=== PATIENT | male | born 1995 | race African-American/Black ===

== ENCOUNTER 2022-01-01 20:07 | Emergency (ER) | payer BC, SELFPAY ==
--- NOTE | ~2022-01-01 | CT_ITS ---
EXAMINATION: CT abdomen pelvis w con DATE: 01/01/2022 23:07 INDICATION: Post gastric bypass. Bleeding. TECHNIQUE: Computed tomography (CT) of the abdomen and pelvis was performed with 100 cc Omnipaque 350 intravenous contrast. The dose-length product was 1721.66 mGy-cm. Automated exposure control and ite rative reconstruction technique were employed. COMPARISON: None. FINDINGS: Lung bases are unremarkable. Heart size normal. No significant pleural or pericardial effus ion. There are surgical changes consistent with gastric bypass surgery. There is minimal perigastric stranding and slight wall thickening, likely postsurgical. No walled off fluid collection to suggest postoperative hematoma or abscess. Fatty infiltration of the liver. The spleen, pancreas, adrenal glands and kidneys are unremarkable. G allbladder is present. No free air or free fluid. Small fat-containing umbilical hernia. Normal appen elana. No significant vascular abnormality. No abdominal lymphadenopathy. IMPRESSION: 1. Postoperative changes consistent with recent gastric bypass surgery. 2: No acute abdominal abnormality. Reviewed, dictated and finalized at location [facility].
[2022-01-01 20:11] VITALS: BP 155/89; PULSE 122; RESP 20; TEMP 36.6; O2SAT 100
[2022-01-01 20:31] LABS: Basophils Percent Auto 0.3 % (0.2-1.2); Eosinophils Absolute Auto 0.2 K/mm3 (0-0.3); Hematocrit 43.3 % (42.0-52.0); Hemoglobin 14.2 g/dL (14.0-18.0); Immature Granulocyte Absolute 0.02 K/mm3 (0.00-0.031); Immature Granulocyte Percent A 0.2 % (0-0.5); Lymphocytes Absolute Auto 3.63 K/mm3 (0.9-3.2); Mean Corpuscular HGB Conc 32.8 g/dl (32-36); Mean Corpuscular Volume 88.4 fl (80-100); Mean Platelet Volume 9.5 fl (7.4-10.4); Monocytes Absolute Auto 0.8 K/mm3 (0.1-0.6); Monocytes Percent Auto 8.1 % (2.6-8.5); Neutrophils Absolute Auto 4.9 K/mm3 (1.3-6.7); Neutrophils Percent Auto 51.4 % (45.5-73.1); Platelet Count Result 272 k/mm3 (150-375); Red Cell Distribution Width 14.2 % (11.5-14.5); White Blood Count 9.6 K/mm3 (4.5-10.0)
[2022-01-01 20:40] LABS: Alanine Aminotransferase 58 U/L (6-50); Albumin Level 4.7 g/dL (3.5-5.1); Alkaline Phosphatase 55 U/L (38-126); Anion Gap 14 mmol/L (8-16); Aspartate Amino Transferase 46 U/L (17-59); Bilirubin,Total 0.8 mg/dL (0.2-1.3); Blood Urea Nitrogen 15 mg/dL (9-20); Calcium 9.2 mg/dL (8.4-10.2); Carbon Dioxide 26 mmol/L (22-30); Chloride 100 mmol/L (98-107); Estimated CRCL calculation 162 ml/min; Estimated Glomerular Filt Rate > 60; Glucose 106 mg/dL (65-110); INR 1.1; Potassium 3.7 mmol/L (3.4-5.0); Prothrombin Time 14.2 Seconds (11.1-14.7); Sodium 140 mmol/L (137-145)
[2022-01-01 20:41] LABS: Partial Thromboplastin Time 32.8 SECONDS (22.3-36.8)
[2022-01-01 21:17] VITALS: BP 128/82; PULSE 82
[2022-01-01 21:18] VITALS: BP 138/98; PULSE 105
[2022-01-01 21:19] VITALS: BP 124/101; PULSE 125
[2022-01-01 21:23] VITALS: PULSE 97; RESP 22; O2SAT 99
--- NOTE | 2022-01-01 21:29 | ED.GENADULT ---
HPI - General Adult General Chief complaint: GI Bleed Stated complaint: gi bleed Time Seen by Provider: 01/01/22 21:16 History of Present Illness HPI narrative: 26-year-old male presented to the emergency department for evaluation after passing some bright red blood. Patient states he had gastric bypass on Sunday at [facility]. Patient states yesterday he was drinking more water than recommended. Patient states today that he noticed some bright red blood in his stool. Patient denies any abdominal pain. Patient reported a prior history of hemorrhoids. Patient is currently on Lovenox twice daily. Related Data Allergies Allergy/AdvReac Type Severity Reaction Status Date / Time No Known Allergies Allergy Verified 01/01/22 21:23 Review of Systems Review of Systems: CONSTITUTIONAL: Denies fever, chills, or sweats. EYES: Denies visual changes, redness, or discharge. ENT: Denies rhinorrhea, congestion, sore throat, or otalgia. CARDIOVASCULAR: Denies chest pain, palpitations, or edema. RESPIRATORY: Denies cough or dyspnea. GASTROINTESTINAL: See HPI GENITOURINARY: Denies dysuria or hematuria. SKIN: Denies rash or itching. MUSCULOSKELETAL: Denies back pain, joint pain, or myalgia. NEUROLOGIC: Denies headache, numbness, or weakness. Exam Narrative: APPEARANCE: Well appearing, no pain, no distress, well-nourished. HEAD: normocephalic, atraumatic. EYES: PERRLA/EOMI, conjunctivae clear. NOSE: Normal no drainage NECK: Supple. No adenopathy, no masses. RESPIRATORY: Airway patent, respirations nonlabored. Clear to auscultation bilaterally, no rales, rhonchi, wheezing. CARDIOVASCULAR: Regular rate and rhythm without murmurs rubs or gallops. ABDOMINAL: Soft, nontender, nondistended, normal bowel sounds. Surgical incisions are well-appearing. MUSCULOSKELETAL: Moves all extremities. Strength/ROM intact, No edema, No calf tenderness. NEURO: Alert. Cranial nerves II through XII intact. Grossly intact SKIN: Warm, dry. Normal Color Course Course Emergency Course: Case was discussed with the patient's surgeons at [facility]. They are comfortable with the plan for discharge and follow-up. Patient was also comfortable with the plan for discharge and follow-up. Patient was in no distress at time of discharge. Reevaluation(s) Reevaluation #1: Case was discussed with Dr. Boyd at [facility] Vital Signs Vital signs: Vital Signs Temperature 97.8 F 01/01/22 20:11 Pulse Rate 122 H 01/01/22 20:11 Respiratory Rate 20 01/01/22 20:11 Blood Pressure 155/89 H 01/01/22 20:11 Pulse Oximetry 100 01/01/22 20:11 Oxygen Delivery Room Air 01/01/22 20:11 Temperature 97.8 F 01/01/22 20:11 Pulse Rate 81 01/02/22 02:06 Respiratory Rate 20 01/02/22 02:06 Blood Pressure 128/71 01/02/22 02:06 Pulse Oximetry 99 01/02/22 01:33 Oxygen Delivery Room Air 01/01/22 20:11 Medical Decision Making Vital Signs Vital Signs: Vital Signs Temperature 97.8 F 01/01/22 20:11 Pulse Rate 122 H 01/01/22 20:11 Respiratory Rate 20 01/01/22 20:11 Blood Pressure 155/89 H 01/01/22 20:11 Pulse Oximetry 100 01/01/22 20:11 Oxygen Delivery Room Air 01/01/22 20:11 Temperature 97.8 F 01/01/22 20:11 Pulse Rate 81 01/02/22 02:06 Respiratory Rate 20 01/02/22 02:06 Blood Pressure 128/71 01/02/22 02:06 Pulse Oximetry 99 01/02/22 01:33 Oxygen Delivery Room Air 01/01/22 20:11 Lab Data Lab results reviewed: Yes I reviewed the patient's lab results. Result diagrams: 01/01/22 20:23 01/01/22 20:23 Labs: Lab Results 01/01/22 01/01/22 01/01/22 Range/Units 20:23 20:23 20:23 WBC 9.6 (4.5-10.0) K/mm3 RBC 4.90 (4.6-6.20) M/mm3 Hgb 14.2 (14.0-18.0) g/dL Hct 43.3 (42.0-52.0) % MCV 88.4 (80-100) fl MCH 29.0 (26-34) pg MCHC 32.8 (32-36) g/dl RDW 14.2 (11.5-14.5) % Plt Count 272 (150-375) k/mm3 MPV 9.5 (7.4-10.4) fl Im
[2022-01-01] MEDS: SODIUM CHLORIDE 0.9% IV 1,000 ML 999 ML IV CONT (22:20)
[2022-01-01] MEDS: PANTOPRAZOLE SODIUM IV 40 MG VIAL IV PUSH (22:20)
[2022-01-01 22:54] VITALS: BP 120/67; PULSE 82; RESP 18; O2SAT 100
--- NOTE | 2022-01-01 22:55 | PC.NURSE ---
Pt to CT via stretcher at this time.
--- NOTE | 2022-01-01 23:16 | PC.NURSE ---
Pt requesting ice chips. Pt educated on need for NPO status at this time.
[2022-01-02 01:33] VITALS: BP 109/59; PULSE 77; RESP 16; O2SAT 99
[2022-01-02 02:06] VITALS: BP 128/71; PULSE 81; RESP 20
== END 2022-01-02 02:06 | disposition home or self-care (01) ==
PROVIDERS: Emergency Provider Emergency Medicine
DX: K91.840 Postprocedural hemorrhage of a digestive system organ or structure following a digestive system procedure (principal); Z98.84 Bariatric surgery status
CPT/HCPCS: 36415; 74177; 80053; 85025; 85610; 85730; 86850; 86900; 86901; 96361; 96374; 99284; C9113; J7030; Q9967

== ENCOUNTER 2022-08-19 15:12 | Emergency (ER) | payer OTHER, BC, SELFPAY ==
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
[2022-08-19 15:43] VITALS: BP 131/78; PULSE 74; RESP 16; TEMP 36.8; O2SAT 100
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
[2022-08-19 18:37] VITALS: BP 153/95; PULSE 72; RESP 18; O2SAT 100
== END 2022-08-19 19:00 | disposition short-term general hospital (02) ==
PROVIDERS: Emergency Provider Preventive Medicine Aerospace Medicine
DX: S00.83XA Contusion of other part of head, initial encounter (principal); R51.9 Headache, unspecified; M54.6 Pain in thoracic spine; V89.2XXA Person injured in unspecified motor-vehicle accident, traffic, initial encounter; Z98.84 Bariatric surgery status
CPT/HCPCS: 70450; 72070; 99284; 99285

== ENCOUNTER 2024-12-15 17:27 | Emergency (ER) | payer OTHER, SELFPAY ==
--- NOTE | ~2024-12-15 | US_ITS ---
EXAMINATION: US scrotum doppler DATE: 12/15/2024 18:47 INDICATION: left testicualr pain . TECHNIQUE: Grayscale and Doppler ultrasound images of the testes were obtained. COMPARISON: None. FINDINGS: The right testis measures 4.2 x 2.6 x 1.9 cm. The left testis measures 3.1 x 1.8 x 3.0 cm. No testicular mass. There is normal vascular flow to both testes. The right epididymis contains a sim ple 1.7 cm cyst and is otherwise normal with normal vascular flow. The left epididymis contains a sim ple 1.1 cm cyst and is otherwise normal with normal vascular flow. There is no varicocele or hydrocel e. IMPRESSION: Unremarkable ultrasound findings. Reviewed, dictated and finalized at location K.
--- OUTSIDE RECORDS SUMMARY | 2024-12-15 17:29 | XMS_ITS | Continuity of Care Document ---
Author Organization [facility] Address [address] [place] [address] Phone Care Team Providers Care Tax Accounting Manager Name Role Phone Gustavo BECKETT, ANJELICAT, Giovanni Unavailable Unavailable Procedures Procedure Date Therapeutic Activities Neuromuscular Re-Ed Therapeutic Exercise Therapeutic Activities Neuromuscular Re-Ed Therapeutic Exercise PT Evaluation High Complexity Therapeutic Activities Therapeutic Exercise Neuromuscular Re-Ed Advance Directives Directive Yes / No Effective Date File Name No Information Encounters Encounter Description Practice Location Reason(s) For Visit Diagnoses Date Provider Providers Copied on Encounter [facility], [id number], tel:[phone] [place] No Information 3 Gustavo Davila. . [facility] [address], [place], [place], [id number], tel:[phone] [place] No Information 3 Gustavo Davila. . Referring Provider: [facility]. [facility] [address], [place], [place], [id number], tel:[phone] [place] No Information 3 Gustavo Davila. . Referring Provider: [facility]. [facility] [address], [place], [place], [id number], tel:[phone] [place] No Information 3 Gustavo Davila. . Referring Provider: [facility]. Family History Family Member Type Diagnosis Age At Onset No Information Payers Payer name Insurance type Covered alliance party ID Kimmy navarro(francois Lindsaye Coco [employer] 00 Social History Type Description Quantity Date Captured Comments Sex Male Smoking Status No Information Chief Complaint And Reason For Visit No Information Reason For Referral Reason For Referral No Information History Of Present Illness Encounter Date Complaint History Of Prese nt Illness No Information Functional Status Date Functional Assessmen t No Information Instructions Date Instruction Additional Infor mation Giving encouragement to exercise Related to Overweight Giving encouragement to exercise Related to Overweight Assessments Type Assessment Date No Information Patient Care Teams Name Effective Dates (start - stop) Status Members No Information
--- OUTSIDE RECORDS SUMMARY | 2024-12-15 17:29 | XMS_ITS | Clinical Summary ---
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 Gender Identity Not on file Sexual Orientation Not on file Plan of Treatment Health Maintenance Due Date Last Done Comments Hepatitis C Virus (HCV) Screening 1995 Hepatitis B Immunization (1 of 3 - 19+ 3-dose series) 07/30/2014 Influenza Immunization (#1) 2024 SARS-COV-2 Immunization ( season) 2024 Respiratory Syncytial Virus (RSV) Immunization (Adult) (1 - 1-dose 75+ series) 07/30/2070 DTaP/Tdap/Td Immunization Discontinued 12/24/2014 Human Papillomavirus (HPV) Immunization Discontinued 12/24/2014 TdaP Immunization Completed 12/24/2014 Meningococcal Immunization (ACWY) Aged Out No longer eligible based on patient's age to complete this topic Pneumococcal Immunization Combined Aged Out No longer eligible based on patient's age to complete this topic Rotavirus Immunization Aged Out No lo nger eligible based on patient's age to complete this topic
--- OUTSIDE RECORDS SUMMARY | 2024-12-15 17:29 | XMS_ITS | Data Portability ---
Author Organization [facility] Animated Speech, Main Office Address [address] [place] [address] Assessment No assessment recorded. Plan of Treatment Reminders Order Date Submit Date Provider Last Modified By Organization Details Last Modified Time Details Appointments None record ed. Lab None record ed. Referral None record ed. Procedures None record ed. Surgeries None record ed. Imaging None record ed. Medication Orders None record ed. Patient TargetsNo targets recorded. Patient InstructionsNo instructions recorded. Reason for Referral None Reported. Results Created Date Observation Date Name Description Value Unit Range Abnormal Flag Note LastModifiedBy Organization Detail LastModifiedTime 01/05/20 22 01/08/2022 FSH AND LH FSH 6.5 mIU/m L 1.6-8. 0 normal Not Available [facility] [address] [address] [place], [address], 01/08/2022 16:42:50 01/05/20 22 01/08/2022 FSH AND LH LH 3.7 mIU/m L 1.5-9. 3 normal Not Available [facility] [address], [address], 01/08/2022 16:42:50 01/05/20 22 01/08/2022 PSA, TOTAL PSA, total 0.93 NG/mL < or = 4.00 normal The total PSA value from this assay syste m is stand ardiz ed again st the WHO stand bee. The test resul t will be appro ximat roberto 20% lower when walter red to the equim olar- stand ardiz ed total PSA (Ramirez man Coult er). Walter rison of seria l PSA resul ts shoul d be inter prete d with this fact in mind. This test was perfo rmed using the Sieme ns chemi lumin escen t metho d. Value s obtai isac from diffe rent assay metho ds canno t be used inter boyd eably . PSA level s, regar dless of value , shoul d not be inter prete d as absol miah evide nce of the prese nce or absen ce of disea se. Not Available [facility] [address], [address], 01/08/2022 16:42:50 01/05/20 22 01/08/2022 CBC (INCL UDES DIFF/ PLT) white blood cell count 7.4 thous and/u L 3.8-10 .8 normal Not Available [address], [address], 01/08/2022 16:42:50 01/05/20 22 01/08/2022 CBC (INCL UDES DIFF/ PLT) red blood cell count 4.56 oralia on/uL 4.20-5 .80 normal Not Available [address], [address], 01/08/2022 16:42:50 01/05/20 22 01/08/2022 CBC (INCL UDES DIFF/ PLT) hemoglobin 13.0 g/dL 13.2-1 7.1 low Not Available [facility] [address], [address], 01/08/2022 16:42:50 01/05/20 22 01/08/2022 CBC (INCL UDES DIFF/ PLT) hematocrit 39.4 % 38.5-5 0.0 normal Not Available [facility] [address], [address], 01/08/2022 16:42:50 01/05/20 22 01/08/2022 CBC (INCL UDES DIFF/ PLT) MCV 86.4 fL 80.0-1 00.0 normal Not Available [facility] [address] [address], [place], [address], 01/08/2022 16:42:50 01/05/20 22 01/08/2022 CBC (INCL UDES DIFF/ PLT) MCH 28.5 pg 27.0-3 3.0 normal Not Available [address], [address], 01/08/2022 16:42:50 01/05/20 22 01/08/2022 CBC (INCL UDES DIFF/ PLT) MCHC 33.0 g/dL 32.0-3 6.0 normal Not Available [address], [address], 01/08/2022 16:42:50 01/05/20 22 01/08/2022 CBC (INCL UDES DIFF/ PLT) RDW 13.6 % 11.0-1 5.0 normal Not Available [address], [address], 01/08/2022 16:42:50 01/05/20 22 01/08/2022 CBC (INCL UDES DIFF/ PLT) platelet count 292 thous and/u L 140-40 0 normal Not Available [address], [address], 01/08/2022 16:42:50 01/05/20 22 01/08/2022 CBC (INCL UDES DIFF/ PLT) MPV 10.2 fL 7.5-12 .5 normal Not Available [address], [address], 01/08/2022 16:42:50 01/05/20 22 01/08/2022 CBC (INCL UDES DIFF/ PLT) absolute neutrophils 3596 cells /uL 1500-7 800 normal Not Available [address], [address], 01/08/2022 16:42:50 01/05/20 22 01/08/2022 CBC (INCL UDES DIFF/ PLT) absolute lymphocytes 2938 cells /uL 850-39 00 normal Not Available [address], [address], 01/08/2022 16:42:50 01/05/20 22 01/08/2022 CBC (INCL UDES DIFF/ PLT) absolute monocytes 636 cells /uL 200-95 0 normal Not Available [address], [address], 01/08/2022 16:42:50 01/05/20 22 01/08/2022 CBC (INCL UDES DIFF/ PLT) absolute eosinophils 200 cells /uL 15-500 normal Not Available [address], [address], 01/08/2022 16:42:50 01/05/20 22 01/08/2022 CBC (INCL UDES DIFF/ PLT) absolute basophils 30 cells /uL 0-200 normal Not Available [facility] [address], [address], 01/08/2022 16:42:50 01/05/20 22 01/08/2022 CBC (INCL UDES DIFF/ PLT) neutrophils 48.6 % normal Not Available [address], [address], 01/08/2022 16:42:50 01/05/20 22 01/08/2022 CBC (INCL UDES DIFF/ PLT) lymphocytes 39.7 % normal Not Available [facility] [address], [address], 01/08/2022 16:42:50 01/05/20 22 01/08/2022 CBC (INCL UDES DIFF/ PLT) monocytes 8.6 % normal Not Available [facility] [address], [address], 01/08/2022 16:42:50 01/05/20 22 01/08/2022 CBC (INCL UDES DIFF/ PLT) eosinophils 2.7 % normal Not Available [address], [address], 01/08/2022 16:42:50 01/05/20 22 01/08/2022 CBC (INCL UDES DIFF/ PLT) basophils 0.4 % normal Not Available [address], [address], 01/08/2022 16:42:50 01/05/20 22 01/08/2022 COMPR EHENS VNETURA METAB OLIC PANEL glucose 78 mg/dL 65-99 normal Fasti ng refer ence inter khari Not Available [address], [address], 01/08/2022 16:42:49 01/05/20 22 01/08/2022 COMPR EHENS VENTURA METAB OLIC PANEL urea nitrogen (BUN) 10 mg/dL 7-25 normal Not Available [address], [address], 01/08/2022 16:42:49 01/05/20 22 01/08/2022 COMPR EHENS VENTURA METAB OLIC PANEL creatinine 0.89 mg/dL 0.60-1 .24 normal Not Available [address], [address], 01/08/2022 16:42:49 01/05/20 22 01/08/2022 COMPR EHENS VENTURA METAB OLIC PANEL eGFR 121 mL/mi n/1.7 3m2 > or = 60 normal The eGFR is based on the CKD-E PI 2020 equat ion. To calcu late the new eGFR from a previ ous Creat inine or Cysta tin C resul t, go to https ://aj hamilton.rao paniagua.o david/casey mendez s/ kdoqi /gfr% 5Fcal culat or Not Available [address], [address], 01/08/2022 16:42:49 01/05/20 22 01/08/2022 COMPR EHENS VENTURA METAB OLIC PANEL BUN/creatini ne ratio not applic able (calc ) 6-22 Not Available [address], [address], 01/08/2022 16:42:49 01/05/20 22 01/08/2022 COMPR EHENS VENTURA METAB OLIC PANEL sodium 138 mmol/ L 135-14 6 normal Not Available [address], [address], 01/08/2022 16:42:49 01/05/20 22 01/08/2022 COMPR EHENS VENTURA METAB OLIC PANEL potassium 4.0 mmol/ L 3.5-5. 3 normal Not Available [address], [address], 01/08/2022 16:42:49 01/05/20 22 01/08/2022 COMPR EHENS VENTURA METAB OLIC PANEL chloride 99 mmol/ L 98-110 normal Not Available [address], [address], 01/08/2022 16:42:49 01/05/20 22 01/08/2022 COMPR EHENS VENTURA METAB OLIC PANEL carbon dioxide 28 mmol/ L 20-32 normal Not Available [address], [address], 01/08/2022 16:42:49 01/05/20 22 01/08/2022 COMPR EHENS VENTURA METAB OLIC PANEL calcium 9.5 mg/dL 8.6-10 .3 normal Not Available [address], [address], 01/08/2022 16:42:49 01/05/20 22 01/08/2022 COMPR EHENS VENTURA METAB OLIC PANEL protein, total 7.0 g/dL 6.1-8. 1 normal Not Available [address], [address], 01/08/2022 16:42:49 01/05/20 22 01/08/2022 COMPR EHENS VENTURA METAB OLIC PANEL albumin 4.4 g/dL 3.6-5. 1 normal Not Available [address], [address], 01/08/2022 16:42:49 01/05/20 22 01/08/2022 COMPR EHENS VENTURA METAB OLIC PANEL globulin 2.6 g/dL_ (calc ) 1.9-3. 7 normal Not Available [address], [address], 01/08/2022 16:42:49 01/05/20 22 01/08/2022 COMPR EHENS VENTURA METAB OLIC PANEL albumin/glob ulin ratio 1.7 (calc ) 1.0-2. 5 normal Not Available [address], [address], 01/08/2022 16:42:49 01/05/20 22 01/08/2022 COMPR EHENS VENTURA METAB OLIC PANEL bilirubin, total 0.6 mg/dL 0.2-1. 2 normal Not Available [address], [address], 01/08/2022 16:42:49 01/05/20 22 01/08/2022 COMPR EHENS VENTURA METAB OLIC PANEL alkaline phosphatase 44 U/L 36-130 normal Not Available [address], [address], 01/08/2022 16:42:49 01/05/20 22 01/08/2022 COMPR EHENS VENTURA METAB OLIC PANEL AST 36 U/L 10-40 normal Not Available [address], [address], 01/08/2022 16:42:49 01/05/20 22 01/08/2022 COMPR EHENS VENTURA METAB OLIC PANEL ALT 56 U/L 9-46 high Not Available [address], [address], 01/08/2022 16:42:49 01/05/20 22 01/08/2022 TESTO STERO NE, FREE, BIOAV AILAB LE AND TOTAL , MS albumin 4.5 g/dL 3.6-5. 1 Not Available [address], [address], 01/08/2022 16:42:49 01/05/20 22 01/08/2022 TESTO STERO NE, FREE, BIOAV AILAB LE AND TOTAL , MS sex hormone binding globulin 16.9 nmol/ L 10-50 Not Available [address], [address], 01/08/2022 16:42:49 01/05/20 22 01/08/2022 TESTO STERO NE, FREE, BIOAV AILAB LE AND TOTAL , MS testosterone , free 27.4 pg/mL 46.0-2 24.0 low Not Available [address], [address], 01/08/2022 16:42:49 01/05/20 22 01/08/2022 TESTO STERO NE, FREE, BIOAV AILAB LE AND TOTAL , MS testosterone ,bioavailabl e 56.3 NG/dL 110.0- 575.0 low Not Available [address], [address], 01/08/2022 16:42:49 01/05/20 22 01/08/2022 TESTO STERO NE, FREE, BIOAV AILAB LE AND TOTAL , MS testosterone , total, MS 141 NG/dL 250-11 00 low Men with clini lauri signi fican t hypog onada l sympt oms and testo stero ne value s repea tedly in the range of the 200-3 00 ng/dL or less, may benef it from testo stero ne treat ment after adequ ate risk and benef its couns eling . For addit ional yee levin refer to https ://ed RushFiles on.qu Reddit. com/f aq/FA Q165 (This link is being provi ded for infor matio nal/e ducat ional purpo ses only. ) (Note ) This test was devel oped and its sara tical perfo rmanc e christal cteri stics have been deter mined by [facility]. It has not been clear ed or appro mira by the FDA. This assay has been valid ated pursu ant to the CLIA regul ation s and is used for clini mesfin purpo ses. MDF med fusio n [address] [facility] [address] [facility] [address] [phone] Shaun luong MD Not Available [address], [address], 01/08/2022 16:42:49 02/25/20 22 02/28/2022 TESTO STERO NE, FREE (DIAL YSIS) AND TOTAL ,MS testosterone , total, MS 698 NG/dL 250-11 00 For addit ional yee levin refer to https ://ed RushFiles on.qu Reddit. com/f aq/FA Q165 (This link is being provi ded for infor matio nal/e ducat ional purpo ses only. ) (Note ) This test was devel oped and its sara tical perfo rmanc e christal cteri stics have been deter mined by [facility]. It has not been clear ed or appro mira by the FDA. This assay has been valid ated pursu ant to the CLIA regul ation s and is used for clini mesfin purpo ses. Not Available [facility], [address], 02/28/2022 15:01:41 02/25/20 22 02/28/2022 TESTO STERO NE, FREE (DIAL YSIS) AND TOTAL ,MS testosterone , free 146.6 pg/mL 35.0-1 55.0 (Note ) This test was devel oped and its sara tical perfo rmanc e christal cteri stics have been deter mined by [facility]. It has not been clear ed or appro mira by the FDA. This assay has been valid ated pursu ant to the CLIA regul ation s and is used for clini mesfin purpo ses. MDF med fusio n [address] [facility] [address] [facility] [address] [phone] Shaun luong MD Not Available [address], [address], 02/28/2022 15:01:41 02/25/20 22 02/28/2022 CBC (INCL UDES DIFF/ PLT) white blood cell count 5.0 thous and/u L 3.8-10 .8 normal Not Available [address], [address], 02/28/2022 15:01:40 02/25/20 22 02/28/2022 CBC (INCL UDES DIFF/ PLT) red blood cell count 4.71 oralia on/uL 4.20-5 .80 normal Not Available [address], [address], 02/28/2022 15:01:40 02/25/20 22 02/28/2022 CBC (INCL UDES DIFF/ PLT) hemoglobin 13.8 g/dL 13.2-1 7.1 normal Not Available [address], [address], 02/28/2022 15:01:40 02/25/20 22 02/28/2022 CBC (INCL UDES DIFF/ PLT) hematocrit 41.2 % 38.5-5 0.0 normal Not Available [address], [address], 02/28/2022 15:01:40 02/25/20 22 02/28/2022 CBC (INCL UDES DIFF/ PLT) MCV 87.5 fL 80.0-1 00.0 normal Not Available [address], [address], 02/28/2022 15:01:40 02/25/20 22 02/28/2022 CBC (INCL UDES DIFF/ PLT) MCH 29.3 pg 27.0-3 3.0 normal Not Available [address], [address], 02/28/2022 15:01:40 02/25/20 22 02/28/2022 CBC (INCL UDES DIFF/ PLT) MCHC 33.5 g/dL 32.0-3 6.0 normal Not Available [address], [address], 02/28/2022 15:01:40 02/25/20 22 02/28/2022 CBC (INCL UDES DIFF/ PLT) RDW 14.6 % 11.0-1 5.0 normal Not Available [address], [address], 02/28/2022 15:01:40 02/25/20 22 02/28/2022 CBC (INCL UDES DIFF/ PLT) platelet count 231 thous and/u L 140-40 0 normal Not Available [address], [address], 02/28/2022 15:01:40 02/25/20 22 02/28/2022 CBC (INCL UDES DIFF/ PLT) MPV 10.5 fL 7.5-12 .5 normal Not Available [address], [address], 02/28/2022 15:01:40 02/25/20 22 02/28/2022 CBC (INCL UDES DIFF/ PLT) absolute neutrophils 2415 cells /uL 1500-7 800 normal Not Available [address], [address], 02/28/2022 15:01:40 02/25/20 22 02/28/2022 CBC (INCL UDES DIFF/ PLT) absolute lymphocytes 2050 cells /uL 850-39 00 normal Not Available [address], [address], 02/28/2022 15:01:40 02/25/20 22 02/28/2022 CBC (INCL UDES DIFF/ PLT) absolute monocytes 385 cells /uL 200-95 0 normal Not Available [address], [address], 02/28/2022 15:01:40 02/25/20 22 02/28/2022 CBC (INCL UDES DIFF/ PLT) absolute eosinophils 120 cells /uL 15-500 normal Not Available [address], [address], 02/28/2022 15:01:40 02/25/20 22 02/28/2022 CBC (INCL UDES DIFF/ PLT) absolute basophils 30 cells /uL 0-200 normal Not Available [address], [address], 02/28/2022 15:01:40 02/25/20 22 02/28/2022 CBC (INCL UDES DIFF/ PLT) neutrophils 48.3 % normal Not Available [address], [address], 02/28/2022 15:01:40 02/25/20 22 02/28/2022 CBC (INCL UDES DIFF/ PLT) lymphocytes 41.0 % normal Not Available [facility] [address], [address], 02/28/2022 15:01:40 02/25/20 22 02/28/2022 CBC (INCL UDES DIFF/ PLT) monocytes 7.7 % normal Not Available [address], [address], 02/28/2022 15:01:40 02/25/20 22 02/28/2022 CBC (INCL UDES DIFF/ PLT) eosinophils 2.4 % normal Not Available [facility] [address], [address], 02/28/2022 15:01:40 02/25/20 22 02/28/2022 CBC (INCL UDES DIFF/ PLT) basophils 0.6 % normal Not Available [address], [address], 02/28/2022 15:01:40 02/25/20 22 02/28/2022 COMPR EHENS VENTURA METAB OLIC PANEL glucose 90 mg/dL 65-99 normal Fasti ng refer ence inter khari Not Available [address], [address], 02/28/2022 15:01:39 02/25/20 22 02/28/2022 COMPR EHENS VENTURA METAB OLIC PANEL urea nitrogen (BUN) 7 mg/dL 7-25 normal Not Available [address], [address], 02/28/2022 15:01:39 02/25/20 22 02/28/2022 COMPR EHENS VENTURA METAB OLIC PANEL creatinine 0.88 mg/dL 0.60-1 .24 normal Not Available [address], [address], 02/28/2022 15:01:39 02/25/20 22 02/28/2022 COMPR EHENS VENTURA METAB OLIC PANEL eGFR 122 mL/mi n/1.7 3m2 > or = 60 normal The eGFR is based on the CKD-E PI 2020 equat ion. To calcu late the new eGFR from a previ ous Creat inine or Cysta tin C resul t, go to https ://aj hamilton.rao paniagua.o david/pr osoriodagmar ional s/ kdoqi /gfr% 5Fcal culat or Not Available [address] [address] [place], [address], 02/28/2022 15:01:39 02/25/20 22 02/28/2022 COMPR EHENS VENTURA METAB OLIC PANEL BUN/creatini ne ratio not applic able (calc ) 6-22 Not Available [address], [address], 02/28/2022 15:01:39 02/25/20 22 02/28/2022 COMPR EHENS VENTURA METAB OLIC PANEL sodium 140 mmol/ L 135-14 6 normal Not Available [address] [address] [place], [address], 02/28/2022 15:01:39 02/25/20 22 02/28/2022 COMPR EHENS VENTURA METAB OLIC PANEL potassium 3.9 mmol/ L 3.5-5. 3 normal Not Available [address] [address] [place], [address], 02/28/2022 15:01:39 02/25/20 22 02/28/2022 COMPR EHENS VENTURA METAB OLIC PANEL chloride 103 mmol/ L 98-110 normal Not Available [facility] [address] [address] [place], [address], 02/28/2022 15:01:39 02/25/20 22 02/28/2022 COMPR EHENS VENTURA METAB OLIC PANEL carbon dioxide 29 mmol/ L 20-32 normal Not Available [address] [address] [place], [address], 02/28/2022 15:01:39 02/25/20 22 02/28/2022 COMPR EHENS VENTURA METAB OLIC PANEL calcium 9.1 mg/dL 8.6-10 .3 normal Not Available [address], [address], 02/28/2022 15:01:39 02/25/20 22 02/28/2022 COMPR EHENS VENTURA METAB OLIC PANEL protein, total 6.2 g/dL 6.1-8. 1 normal Not Available [address], [address], 02/28/2022 15:01:39 02/25/20 22 02/28/2022 COMPR EHENS VENTURA METAB OLIC PANEL albumin 4.1 g/dL 3.6-5. 1 normal Not Available [address], [address], 02/28/2022 15:01:39 02/25/20 22 02/28/2022 COMPR EHENS VENTURA METAB OLIC PANEL globulin 2.1 g/dL_ (calc ) 1.9-3. 7 normal Not Available [address], [address], 02/28/2022 15:01:39 02/25/20 22 02/28/2022 COMPR EHENS VENTURA METAB OLIC PANEL albumin/glob ulin ratio 2.0 (calc ) 1.0-2. 5 normal Not Available [address], [address], 02/28/2022 15:01:39 02/25/20 22 02/28/2022 COMPR EHENS VENTURA METAB OLIC PANEL bilirubin, total 0.7 mg/dL 0.2-1. 2 normal Not Available [address], [address], 02/28/2022 15:01:39 02/25/20 22 02/28/2022 COMPR EHENS VENTURA METAB OLIC PANEL alkaline phosphatase 45 U/L 36-130 normal Not Available [address], [address], 02/28/2022 15:01:39 02/25/20 22 02/28/2022 COMPR EHENS VENTURA METAB OLIC PANEL AST 22 U/L 10-40 normal Not Available [address], [address], 02/28/2022 15:01:39 02/25/20 22 02/28/2022 COMPR EHENS VENTURA METAB OLIC PANEL ALT 28 U/L 9-46 normal Not Available [address], [address], 02/28/2022 15:01:39 05/16/20 22 05/19/2022 TESTO STERO NE, FREE, BIOAV AILAB LE AND TOTAL , MS albumin 4.4 g/dL 3.6-5. 1 Not Available [address], [address], 05/19/2022 23:30:36 05/16/20 22 05/19/2022 TESTO STERO NE, FREE, BIOAV AILAB LE AND TOTAL , MS sex hormone binding globulin 20.2 nmol/ L 10-50 Not Available [address], [address], 05/19/2022 23:30:36 05/16/20 22 05/19/2022 TESTO STERO NE, FREE, BIOAV AILAB LE AND TOTAL , MS testosterone , free 137.3 pg/mL 46.0-2 24.0 Not Available [address], [address], 05/19/2022 23:30:36 05/16/20 22 05/19/2022 TESTO STERO NE, FREE, BIOAV AILAB LE AND TOTAL , MS testosterone ,bioavailabl e 276.3 NG/dL 110.0- 575.0 Not Available [address], [address], 05/19/2022 23:30:36 05/16/20 22 05/19/2022 TESTO STERO NE, FREE, BIOAV AILAB LE AND TOTAL , MS testosterone , total, MS 652 NG/dL 250-11 00 For addit ional infor yee beebe refer to https ://ed ucati on.qu estdi [employer] tics. com/f aq/FA Q165 (This link is being provi ded for infor carl nal/e ducat ional purpo ses only. ) (Note ) This test was devel oped and its sara tical perfo rmanc e christal cteri stics have been deter mined by [facility]. It has not been clear ed or appro mira by the FDA. This assay has been valid ated pursu ant to the CLIA regul ation s and is used for clini mesfin purpo ses. MDF med fusio n [address] [facility] [address] [facility] [address] [phone] Shaun luong MD Not Available [address], [address], 05/19/2022 23:30:36 05/16/20 22 05/17/2022 URINA LYSIS REFLE X color dark yellow yellow normal Not Available [address], [address], 05/17/2022 07:54:23 05/16/20 22 05/17/2022 URINA LYSIS REFLE X appearance turbid clear abnormal Not Available [address], [address], 05/17/2022 07:54:23 05/16/20 22 05/17/2022 URINA LYSIS REFLE X specific gravity 1.031 1.001- 1.035 normal Not Available [address], [address], 05/17/2022 07:54:23 05/16/20 22 05/17/2022 URINA LYSIS REFLE X pH 5.5 5.0-8. 0 normal Not Available [address], [address], 05/17/2022 07:54:23 05/16/20 22 05/17/2022 URINA LYSIS REFLE X glucose negati ve negati ve normal Not Available [address], [address], 05/17/2022 07:54:23 05/16/20 22 05/17/2022 URINA LYSIS REFLE X bilirubin 1+ negati ve abnormal Presu mptiv e posit ventura bilir ubin. Consi maricruz confi rmati on by serum bilir ubin if clini lauri indic ated. Not Available [address], [address], 05/17/2022 07:54:23 05/16/20 22 05/17/2022 URINA LYSIS REFLE X ketones 1+ negati ve abnormal Not Available [address], [address], 05/17/2022 07:54:23 05/16/20 22 05/17/2022 URINA LYSIS REFLE X occult blood negati ve negati ve normal Not Available [address], [address], 05/17/2022 07:54:23 05/16/20 22 05/17/2022 URINA LYSIS REFLE X protein 1+ negati ve abnormal Not Available [address], [address], 05/17/2022 07:54:23 05/16/20 22 05/17/2022 URINA LYSIS REFLE X nitrite negati ve negati ve normal Not Available [address] [address] [place], [address], 05/17/2022 07:54:23 05/16/20 22 05/17/2022 URINA LYSIS REFLE X leukocyte esterase 1+ negati ve abnormal Not Available [address] [address] [place], [address], 05/17/2022 07:54:23 05/16/20 22 05/17/2022 URINA LYSIS REFLE X WBC 20-40 /hpf < or = 5 abnormal Not Available [address] [address] [place], [address], 05/17/2022 07:54:23 05/16/20 22 05/17/2022 URINA LYSIS REFLE X RBC none seen /hpf < or = 2 normal Not Available [address] [address] [place], [address], 05/17/2022 07:54:23 05/16/20 22 05/17/2022 URINA LYSIS REFLE X squamous epithelial cells 0-5 /hpf < or = 5 Not Available [address] [address] [place], [address], 05/17/2022 07:54:23 05/16/20 22 05/17/2022 URINA LYSIS REFLE X bacteria none seen /hpf none seen normal Not Available [address] [address] [place], [address], 05/17/2022 07:54:23 05/16/20 22 05/17/2022 URINA LYSIS REFLE X calcium oxalate crystals modera te /hpf none or few abnormal Not Available [address] [address] [place], [address], 05/17/2022 07:54:23 05/16/20 22 05/17/2022 URINA LYSIS REFLE X hyaline cast 0-5 /lpf none seen abnormal Not Available [address] [address] [place], [address], 05/17/2022 07:54:23 05/16/20 22 05/17/2022 URINA LYSIS REFLE X copy received from: [facility] [address] [place] [id number] Not Available [facility] [address] [address] [place], [address], 05/17/2022 07:54:23 05/16/20 22 05/17/2022 HEMOG LOBIN A1C hemoglobin A1C 5.6 %_of_ total _HGB <5.7 normal For the purpo se of screlexus rowley for the prese nce of diabe grace: <5.7% Consi stent with the absen ce of diabe grace 5.7-6 .4% Consi stent with incre ased risk for diabe grace (pred iabet es) > or =6.5% Consi stent with diabe grace This assay resul t is consi stent with a decre ased risk of diabe grace. Curre ntly, no conse nsus exist s ann cochran use of hemog lobin A1c for diagn osis of diabe grace in child jose alejandro. Accor ding to [employer]i can Diabe grace [employer] i[employer] n (ADA) guide lines , hemog lobin A1c <7.0% repre sents optim al contr ol in non-p regna nt diabe tic patie nts. Diffe rent metri cs may apply to speci fic patie nt popul ation s. [facility] al [facility] in Diabe grace(A DA). Not Available [facility] [address] [address] [place], [address], 05/17/2022 07:54:23 05/16/20 22 05/17/2022 HEMOG LOBIN A1C copy received from: [facility] [address] [place] [address] Not Available [facility] [address] [address] [place], [address], 05/17/2022 07:54:23 05/16/20 22 05/17/2022 TSH TSH 1.58 mIU/L 0.40-4 .50 normal Not Available [address], [address], 05/17/2022 07:54:22 05/16/20 22 05/17/2022 TSH copy received from: [facility] [address] [place] [address] Not Available [address], [address], 05/17/2022 07:54:22 05/16/20 22 05/17/2022 CBC (INCL UDES DIFF/ PLT) (REFL ) white blood cell count 7.1 thous and/u L 3.8-10 .8 normal Not Available [address], [address], 05/17/2022 07:54:22 05/16/20 22 05/17/2022 CBC (INCL UDES DIFF/ PLT) (REFL ) red blood cell count 5.26 oralia on/uL 4.20-5 .80 normal Not Available [address], [address], 05/17/2022 07:54:22 05/16/20 22 05/17/2022 CBC (INCL UDES DIFF/ PLT) (REFL ) hemoglobin 15.5 g/dL 13.2-1 7.1 normal Not Available [address], [address], 05/17/2022 07:54:22 05/16/20 22 05/17/2022 CBC (INCL UDES DIFF/ PLT) (REFL ) hematocrit 46.3 % 38.5-5 0.0 normal Not Available [address], [address], 05/17/2022 07:54:22 05/16/20 22 05/17/2022 CBC (INCL UDES DIFF/ PLT) (REFL ) MCV 88.0 fL 80.0-1 00.0 normal Not Available [address], [address], 05/17/2022 07:54:22 05/16/20 22 05/17/2022 CBC (INCL UDES DIFF/ PLT) (REFL ) MCH 29.5 pg 27.0-3 3.0 normal Not Available [address] [address], [address], 05/17/2022 07:54:22 05/16/20 22 05/17/2022 CBC (INCL UDES DIFF/ PLT) (REFL ) MCHC 33.5 g/dL 32.0-3 6.0 normal Not Available [address], [address], 05/17/2022 07:54:22 05/16/20 22 05/17/2022 CBC (INCL UDES DIFF/ PLT) (REFL ) RDW 13.7 % 11.0-1 5.0 normal Not Available [address], [address], 05/17/2022 07:54:22 05/16/20 22 05/17/2022 CBC (INCL UDES DIFF/ PLT) (REFL ) platelet count 292 thous and/u L 140-40 0 normal Not Available [address], [address], 05/17/2022 07:54:22 05/16/20 22 05/17/2022 CBC (INCL UDES DIFF/ PLT) (REFL ) MPV 10.8 fL 7.5-12 .5 normal Not Available [address], [address], 05/17/2022 07:54:22 05/16/20 22 05/17/2022 CBC (INCL UDES DIFF/ PLT) (REFL ) absolute neutrophils 3621 cells /uL 1500-7 800 normal Not Available [facility] [address] [address], [place], [address], 05/17/2022 07:54:22 05/16/20 22 05/17/2022 CBC (INCL UDES DIFF/ PLT) (REFL ) absolute lymphocytes 2790 cells /uL 850-39 00 normal Not Available [address], [address], 05/17/2022 07:54:22 05/16/20 22 05/17/2022 CBC (INCL UDES DIFF/ PLT) (REFL ) absolute monocytes 511 cells /uL 200-95 0 normal Not Available [address], [address], 05/17/2022 07:54:22 05/16/20 22 05/17/2022 CBC (INCL UDES DIFF/ PLT) (REFL ) absolute eosinophils 149 cells /uL 15-500 normal Not Available [address], [address], 05/17/2022 07:54:22 05/16/20 22 05/17/2022 CBC (INCL UDES DIFF/ PLT) (REFL ) absolute basophils 28 cells /uL 0-200 normal Not Available [address], [address], 05/17/2022 07:54:22 05/16/20 22 05/17/2022 CBC (INCL UDES DIFF/ PLT) (REFL ) neutrophils 51 % normal Not Available [address], [address], 05/17/2022 07:54:22 05/16/20 22 05/17/2022 CBC (INCL UDES DIFF/ PLT) (REFL ) lymphocytes 39.3 % normal Not Available [address], [address], 05/17/2022 07:54:22 05/16/20 22 05/17/2022 CBC (INCL UDES DIFF/ PLT) (REFL ) monocytes 7.2 % normal Not Available [address], [address], 05/17/2022 07:54:22 05/16/20 22 05/17/2022 CBC (INCL UDES DIFF/ PLT) (REFL ) eosinophils 2.1 % normal Not Available [address], [address], 05/17/2022 07:54:22 05/16/20 22 05/17/2022 CBC (INCL UDES DIFF/ PLT) (REFL ) basophils 0.4 % normal Not Available [address], [address], 05/17/2022 07:54:22 05/16/20 22 05/17/2022 CBC (INCL UDES DIFF/ PLT) (REFL ) copy received from: GIA Alberts [address] [place] [address] Not Available [address], [address], 05/17/2022 07:54:22 05/16/20 22 05/17/2022 COMPR EHENS VENTURA METAB OLIC PANEL glucose 92 mg/dL 65-99 normal Fasti ng refer ence inter khari Not Available [address], [address], 05/17/2022 07:54:21 05/16/20 22 05/17/2022 COMPR EHENS VENTURA METAB OLIC PANEL urea nitrogen (BUN) 6 mg/dL 7-25 low Not Available [address], [address], 05/17/2022 07:54:21 05/16/20 22 05/17/2022 COMPR EHENS VENTURA METAB OLIC PANEL creatinine 0.87 mg/dL 0.60-1 .24 normal Not Available [address], [place], [address], 05/17/2022 07:54:21 05/16/20 22 05/17/2022 COMPR EHENS VENTURA METAB OLIC PANEL eGFR 122 mL/mi n/1.7 3m2 > or = 60 normal The eGFR is based on the CKD-E PI 2020 equat ion. To calcu late the new eGFR from a previ ous Creat inine or Cysta tin C resul t, go to https ://aj w.rao paniagua.o david/pr ayaan mendez s/ kdoqi /gfr% 5Fcal culat or Not Available [address], [address], 05/17/2022 07:54:21 05/16/20 22 05/17/2022 COMPR EHENS VENTURA METAB OLIC PANEL BUN/creatini ne ratio 7 (calc ) 6-22 normal Not Available [address], [address], 05/17/2022 07:54:21 05/16/20 22 05/17/2022 COMPR EHENS VENTURA METAB OLIC PANEL sodium 142 mmol/ L 135-14 6 normal Not Available [address], [address], 05/17/2022 07:54:21 05/16/20 22 05/17/2022 COMPR EHENS VENTURA METAB OLIC PANEL potassium 4.1 mmol/ L 3.5-5. 3 normal Not Available [address], [address], 05/17/2022 07:54:21 05/16/20 22 05/17/2022 COMPR EHENS VENTURA METAB OLIC PANEL chloride 104 mmol/ L 98-110 normal Not Available [address] [address] [place], [address], 05/17/2022 07:54:21 05/16/20 22 05/17/2022 COMPR EHENS VENTURA METAB OLIC PANEL carbon dioxide 33 mmol/ L 20-32 high Not Available [address], [address], 05/17/2022 07:54:21 05/16/20 22 05/17/2022 COMPR EHENS VENTURA METAB OLIC PANEL calcium 9.5 mg/dL 8.6-10 .3 normal Not Available [address], [address], 05/17/2022 07:54:21 05/16/20 22 05/17/2022 COMPR EHENS VENTURA METAB OLIC PANEL protein, total 6.5 g/dL 6.1-8. 1 normal Not Available [address], [address], 05/17/2022 07:54:21 05/16/20 22 05/17/2022 COMPR EHENS VENTURA METAB OLIC PANEL albumin 4.2 g/dL 3.6-5. 1 normal Not Available [address], [address], 05/17/2022 07:54:21 05/16/20 22 05/17/2022 COMPR EHENS VENTURA METAB OLIC PANEL globulin 2.3 g/dL_ (calc ) 1.9-3. 7 normal Not Available [address], [address], 05/17/2022 07:54:21 05/16/20 22 05/17/2022 COMPR EHENS VENTURA METAB OLIC PANEL albumin/glob ulin ratio 1.8 (calc ) 1.0-2. 5 normal Not Available [address], [address], 05/17/2022 07:54:21 05/16/20 22 05/17/2022 COMPR EHENS VENTURA METAB OLIC PANEL bilirubin, total 0.6 mg/dL 0.2-1. 2 normal Not Available [address] [address] [place], [address], 05/17/2022 07:54:21 05/16/20 22 05/17/2022 COMPR EHENS VENTURA METAB OLIC PANEL alkaline phosphatase 58 U/L 36-130 normal Not Available [address] [address] [place], [address], 05/17/2022 07:54:21 05/16/20 22 05/17/2022 COMPR EHENS VENTURA METAB OLIC PANEL AST 16 U/L 10-40 normal Not Available [address] [place], [address], 05/17/2022 07:54:21 05/16/20 22 05/17/2022 COMPR EHENS VENTURA METAB OLIC PANEL ALT 19 U/L 9-46 normal Not Available [address] [address] [place], [address], 05/17/2022 07:54:21 05/16/20 22 05/17/2022 COMPR EHENS VENTURA METAB OLIC PANEL copy received from: GIA Alberts [address] [place] [address] Not Available [address] [address] [place], [address], 05/17/2022 07:54:21 05/16/20 22 05/17/2022 LIPID PANEL , STAND BEE cholesterol, total 118 mg/dL <200 normal Not Available [address] [address] [place], [address], 05/17/2022 07:54:21 05/16/20 22 05/17/2022 LIPID PANEL , STAND BEE HDL cholesterol 40 mg/dL > or = 40 normal Not Available [address] [address] [place], [address], 05/17/2022 07:54:21 05/16/20 22 05/17/2022 LIPID PANEL , STAND BEE triglyceride s 52 mg/dL <150 normal Not Available [facility] [address] [place], [address], 05/17/2022 07:54:21 05/16/20 22 05/17/2022 LIPID PANEL , STAND BEE LDL-choleste rol 65 mg/dL _(mesfin c) normal Refer ence range : <100 Jamir able range <100 mg/dL for prima ry preve ntion ; <70 mg/dL for patie nts with CHD or diabe tic patie nts with > or = 2 CHD risk facto rs. LDL-C is now calcu lated using the Betzaida n-Hop kins fabianou samantha n, which is a valid ated novel narcisoo elvi barahonate r accur acy than the Fried jassi equat ion in the estim ation of LDL-C . Betzaida solis SS et al. MINH. 2013; 310(1 9): 2061- 2068 (http ://ed ucati on.Qu [employer]. com/f aq/FA Q164) Not Available [facility] [address] [place], [address], 05/17/2022 07:54:21 05/16/20 22 05/17/2022 LIPID PANEL , STAND BEE chol/HDLC ratio 3.0 (calc ) <5.0 normal Not Available [facility] [address] [place], [address], 05/17/2022 07:54:21 05/16/20 22 05/17/2022 LIPID PANEL , STAND BEE non HDL cholesterol 78 mg/dL _(mesfin c) <130 normal For patie nts with diabe grace plus 1 major ASCVD risk facto r, treat ing to a non-H DL-C goal of <100 mg/dL (LDL- C of <70 mg/dL ) is consi jarodd a thera peutpari c optio n. Not Available [facility] [address] [place], [address], 05/17/2022 07:54:21 05/16/20 22 05/17/2022 LIPID PANEL , STAND BEE copy received from: GIA Alberts [address] [place] [address] Not Available [facility] [address] [address] [place], [address], 05/17/2022 07:54:21 05/16/20 22 05/17/2022 NOTE copy received from: GIA STELLA Alberts [address] [place] [address] Not Available [facility] [address] [address] [place], [address], 05/17/2022 07:54:23 05/17/20 22 05/22/2022 DRUG MONIT ORING TEMPL ATE notes and comments This drug testi ng is for medic al treat ment only. Sara sis was perfo rmed as non-f orens ic testi ng and these resul ts shoul d be used only by [facility] to rende r diagn osis or treat ment, or to monit or progr ess of medic al condi tions . Note A: The resul ts are presu mptiv e; based only on kan cox, and they have not been confi rmed by a defin itventura boles. [facility] scarlett varela needi ng Inter preta tion estrellita tance , pleas e conta ct us at 1.877 .40.R XTOX (1.87 7.407 .9869 ) M-F, 8am to 10pm EST Not Available [address] [address] [place], [address], 05/22/2022 18:57:46 05/17/20 22 05/22/2022 DRUG MONIT ORING TEMPL ATE copy received from: [facility] [address] [place] [address] Not Available [facility] [address] [address] [place], [address], 05/22/2022 18:57:46 05/17/20 22 05/22/2022 DRUG MONIT OR, PANEL 5, SCREE N, URINE amphetamines negati ve NG/mL <500 See Note A See Note A Not Available [address] [address] [address], [place], [address], 05/22/2022 18:57:45 05/17/20 22 05/22/2022 DRUG MONIT OR, PANEL 5, SCREE N, URINE barbiturates negati ve NG/mL <300 See Note A See Note A Not Available [address] [address] [address], [place], [address], 05/22/2022 18:57:45 05/17/20 22 05/22/2022 DRUG MONIT OR, PANEL 5, SCREE N, URINE benzodiazepi dany negati ve NG/mL <100 See Note A See Note A Not Available [address] [address] [address], [place], [address], 05/22/2022 18:57:45 05/17/20 22 05/22/2022 DRUG MONIT OR, PANEL 5, SCREE N, URINE cocaine metabolite negati ve NG/mL <150 See Note A See Note A Not Available [address] [address] [address], [place], [address], 05/22/2022 18:57:45 05/17/20 22 05/22/2022 DRUG MONIT OR, PANEL 5, SCREE N, URINE marijuana metabolite negati ve NG/mL <20 See Note A See Note A Not Available [address] [address] [address], [place], [address], 05/22/2022 18:57:45 05/17/20 22 05/22/2022 DRUG MONIT OR, PANEL 5, SCREE N, URINE methadone metabolite negati ve NG/mL <100 See Note A See Note A Not Available [address] [address] [address], [place], [address], 05/22/2022 18:57:45 05/17/20 22 05/22/2022 DRUG MONIT OR, PANEL 5, SCREE N, URINE opiates negati ve NG/mL <100 See Note A See Note A Not Available [address] [address] [address], [place], [address], 05/22/2022 18:57:45 05/17/20 22 05/22/2022 DRUG MONIT OR, PANEL 5, SCREE N, URINE oxycodone negati ve NG/mL <100 See Note A See Note A Not Available [address] [address] [address], [place], [address], 05/22/2022 18:57:45 05/17/20 22 05/22/2022 DRUG MONIT OR, PANEL 5, SCREE N, URINE creatinine 275.7 mg/dL > or = 20.0 Not Available [address] [address] [address], [place], [address], 05/22/2022 18:57:45 05/17/20 22 05/22/2022 DRUG MONIT OR, PANEL 5, SCREE N, URINE pH 7.0 4.5-9. 0 Not Available [address] [address] [facility] [place], [address], 05/22/2022 18:57:45 05/17/20 22 05/22/2022 DRUG MONIT OR, PANEL 5, SCREE N, URINE oxidant negati ve mcg/m L <200 Not Available [address] [place], [address], 05/22/2022 18:57:45 05/17/20 22 05/22/2022 DRUG MONIT OR, PANEL 5, SCREE N, URINE copy received from: [place] [address] Not Available [address] [address] [address] , [place], [address], 05/22/2022 18:57:45 06/17/19 23 06/17/2022 REFLE XIVE URINE CULTU RE reflexive urine culture NO CULTU RE INDIC ATED Not Available [address], [address], 06/17/2022 17:41:34 06/17/19 23 06/17/2022 URINA LYSIS , COMPL ETE W/REF ELIZA TO CULTU RE color dark yellow yellow normal Not Available [address], [address], 06/17/2022 17:41:33 06/17/19 23 06/17/2022 URINA LYSIS , COMPL ETE W/REF ELIZA TO CULTU RE appearance clear clear normal Not Available [address], [address], 06/17/2022 17:41:33 06/17/19 23 06/17/2022 URINA LYSIS , COMPL ETE W/REF ELIZA TO CULTU RE specific gravity 1.036 1.001- 1.035 high Not Available [address], [address], 06/17/2022 17:41:33 06/17/19 23 06/17/2022 URINA LYSIS , COMPL ETE W/REF ELIZA TO CULTU RE pH 6.0 5.0-8. 0 normal Not Available [address], [address], 06/17/2022 17:41:33 06/17/19 23 06/17/2022 URINA LYSIS , COMPL ETE W/REF ELIZA TO CULTU RE glucose negati ve negati ve normal Not Available [address], [address], 06/17/2022 17:41:33 06/17/19 23 06/17/2022 URINA LYSIS , COMPL ETE W/REF ELIZA TO CULTU RE bilirubin negati ve negati ve normal Not Available [address], [address], 06/17/2022 17:41:33 06/17/19 23 06/17/2022 URINA LYSIS , COMPL ETE W/REF LEIZA TO CULTU RE ketones trace negati ve abnormal Not Available [address], [address], 06/17/2022 17:41:33 06/17/19 23 06/17/2022 URINA LYSIS , COMPL ETE W/REF ELIZA TO CULTU RE occult blood negati ve negati ve normal Not Available [address], [address], 06/17/2022 17:41:33 06/17/19 23 06/17/2022 URINA LYSIS , COMPL ETE W/REF ELIZA TO CULTU RE protein trace negati ve abnormal Not Available [address], [address], 06/17/2022 17:41:33 06/17/19 23 06/17/2022 URINA LYSIS , COMPL ETE W/REF ELIZA TO CULTU RE nitrite negati ve negati ve normal Not Available [address], [address], 06/17/2022 17:41:33 06/17/19 23 06/17/2022 URINA LYSIS , COMPL ETE W/REF ELIZA TO CULTU RE leukocyte esterase negati ve negati ve normal Not Available [facility] [address], [address], 06/17/2022 17:41:33 06/17/19 23 06/17/2022 URINA LYSIS , COMPL ETE W/REF ELIZA TO CULTU RE WBC 0-5 /hpf < or = 5 normal Not Available [address], [address], 06/17/2022 17:41:33 06/17/19 23 06/17/2022 URINA LYSIS , COMPL ETE W/REF ELIZA TO CULTU RE RBC 0-2 /hpf < or = 2 normal Not Available [address], [address], 06/17/2022 17:41:33 06/17/19 23 06/17/2022 URINA LYSIS , COMPL ETE W/REF ELIZA TO CULTU RE squamous epithelial cells none seen /hpf < or = 5 normal Not Available [address], [address], 06/17/2022 17:41:33 06/17/19 23 06/17/2022 URINA LYSIS , COMPL ETE W/REF ELIZA TO CULTU RE bacteria none seen /hpf none seen normal Not Available [address], [address], 06/17/2022 17:41:33 06/17/19 23 06/17/2022 URINA LYSIS , COMPL ETE W/REF ELIZA TO CULTU RE hyaline cast none seen /lpf none seen normal Not Available [address], [address], 06/17/2022 17:41:33 08/11/19 23 08/14/2022 LIPID PANEL (REFL ) cholesterol, total 126 mg/dL <200 normal Not Available [address], [address], 08/14/2022 17:04:10 08/11/19 23 08/14/2022 LIPID PANEL (REFL ) HDL cholesterol 48 mg/dL > or = 40 normal Not Available [address], [address], 08/14/2022 17:04:10 08/11/19 23 08/14/2022 LIPID PANEL (REFL ) triglyceride s 66 mg/dL <150 normal Not Available [address], [address], 08/14/2022 17:04:10 08/11/19 23 08/14/2022 LIPID PANEL (REFL ) LDL-choleste rol 63 mg/dL _(mesfin c) normal Refer ence range : <100 Jamir able range <100 mg/dL for prima ry preve ntion ; <70 mg/dL for patie nts with CHD or diabe tic patie nts with > or = 2 CHD risk facto rs. LDL-C is now calcu lated using the Betzaida n-Hop kins calcu samantha n, which is a valid ated novel metho d provi ding guilherme r accur acy than the Fried jassi equat ion in the estim ation of LDL-C . Betzaida solis SS et al. MINH. 2013; 310(1 0): 2061- 2068 (http ://ed ucati on.[employer]. com/f aq/FA Q164) Not Available [address], [address], 08/14/2022 17:04:10 08/11/19 23 08/14/2022 LIPID PANEL (REFL ) chol/HDLC ratio 2.6 (calc ) <5.0 normal Not Available [address], [address], 08/14/2022 17:04:10 08/11/19 23 08/14/2022 LIPID PANEL (REFL ) non HDL cholesterol 78 mg/dL _(mesfin c) <130 normal For patie nts with diabe grace plus 1 major ASCVD risk facto r, treat ing to a non-H DL-C goal of <100 mg/dL (LDL- C of <70 mg/dL ) is consi dered a thera peparker c optio n. Not Available [address], [address], 08/14/2022 17:04:10 08/11/19 23 08/14/2022 COMPR EHENS VENTURA METAB OLIC PANEL glucose 90 mg/dL 65-99 normal Fasti ng refer ence inter khari Not Available [employer] [facility] [id number] [place] [address], [place], [address], 08/14/2022 17:04:10 08/11/19 23 08/14/2022 COMPR EHENS VENTURA METAB OLIC PANEL urea nitrogen (BUN) 8 mg/dL 7-25 normal Not Available [facility] [address], [address], 08/14/2022 17:04:10 08/11/19 23 08/14/2022 COMPR EHENS VENTURA METAB OLIC PANEL creatinine 0.82 mg/dL 0.60-1 .24 normal Not Available [facility] [address], [address], 08/14/2022 17:04:10 08/11/19 23 08/14/2022 COMPR EHENS VENTURA METAB OLIC PANEL eGFR 123 mL/mi n/1.7 3m2 > or = 60 normal The eGFR is based on the CKD-E PI 2020 equat ion. To calcu late the new eGFR from a previ ous Creat inine or Cysta tin C resul t, go to https ://aj paniagua.candace hernandez/casey mendez s/ kdoqi /gfr% 5Fcal culat or Not Available [address], [address], 08/14/2022 17:04:10 08/11/19 23 08/14/2022 COMPR EHENS VENTURA METAB OLIC PANEL BUN/creatini ne ratio NOT APPLIC ABLE (calc ) 6-22 Not Available [address], [address], 08/14/2022 17:04:10 08/11/19 23 08/14/2022 COMPR EHENS VENTURA METAB OLIC PANEL sodium 140 mmol/ L 135-14 6 normal Not Available [address] [address] [place], [address], 08/14/2022 17:04:10 08/11/19 23 08/14/2022 COMPR EHENS VENTURA METAB OLIC PANEL potassium 4.1 mmol/ L 3.5-5. 3 normal Not Available [address], [address], 08/14/2022 17:04:10 08/11/19 23 08/14/2022 COMPR EHENS VENTURA METAB OLIC PANEL chloride 102 mmol/ L 98-110 normal Not Available [address], [address], 08/14/2022 17:04:10 08/11/19 23 08/14/2022 COMPR EHENS VENTURA METAB OLIC PANEL carbon dioxide 31 mmol/ L 20-32 normal Not Available [address], [address], 08/14/2022 17:04:10 08/11/19 23 08/14/2022 COMPR EHENS VENTURA METAB OLIC PANEL calcium 9.6 mg/dL 8.6-10 .3 normal Not Available [address], [address], 08/14/2022 17:04:10 08/11/19 23 08/14/2022 COMPR EHENS VENTURA METAB OLIC PANEL protein, total 6.7 g/dL 6.1-8. 1 normal Not Available [address], [address], 08/14/2022 17:04:10 08/11/19 23 08/14/2022 COMPR EHENS VENTURA METAB OLIC PANEL albumin 4.1 g/dL 3.6-5. 1 normal Not Available [address], [address], 08/14/2022 17:04:10 08/11/19 23 08/14/2022 COMPR EHENS VENTURA METAB OLIC PANEL globulin 2.6 g/dL_ (calc ) 1.9-3. 7 normal Not Available [address] [place], [address], 08/14/2022 17:04:10 08/11/19 23 08/14/2022 COMPR EHENS VENTURA METAB OLIC PANEL albumin/glob ulin ratio 1.6 (calc ) 1.0-2. 5 normal Not Available [address], [address], 08/14/2022 17:04:10 08/11/19 23 08/14/2022 COMPR EHENS VENTURA METAB OLIC PANEL bilirubin, total 0.7 mg/dL 0.2-1. 2 normal Not Available [address], [address], 08/14/2022 17:04:10 08/11/19 23 08/14/2022 COMPR EHENS VENTURA METAB OLIC PANEL alkaline phosphatase 56 U/L 36-130 normal Not Available [address], [address], 08/14/2022 17:04:10 08/11/19 23 08/14/2022 COMPR EHENS VENTURA METAB OLIC PANEL AST 17 U/L 10-40 normal Not Available [address], [address], 08/14/2022 17:04:10 08/11/19 23 08/14/2022 COMPR EHENS VENTURA METAB OLIC PANEL ALT 16 U/L 9-46 normal Not Available [address], [address], 08/14/2022 17:04:10 08/11/19 23 08/14/2022 CBC (INCL UDES DIFF/ PLT) white blood cell count 5.8 thous and/u L 3.8-10 .8 normal Not Available [address], [address], 08/14/2022 17:04:11 08/11/19 23 08/14/2022 CBC (INCL UDES DIFF/ PLT) red blood cell count 4.84 oralia on/uL 4.20-5 .80 normal Not Available [address], [address], 08/14/2022 17:04:11 08/11/19 23 08/14/2022 CBC (INCL UDES DIFF/ PLT) hemoglobin 14.4 g/dL 13.2-1 7.1 normal Not Available [address], [address], 08/14/2022 17:04:11 08/11/19 23 08/14/2022 CBC (INCL UDES DIFF/ PLT) hematocrit 43.3 % 38.5-5 0.0 normal Not Available [address], [address], 08/14/2022 17:04:11 08/11/19 23 08/14/2022 CBC (INCL UDES DIFF/ PLT) MCV 89.5 fL 80.0-1 00.0 normal Not Available [address], [address], 08/14/2022 17:04:11 08/11/19 23 08/14/2022 CBC (INCL UDES DIFF/ PLT) MCH 29.8 pg 27.0-3 3.0 normal Not Available [address], [address], 08/14/2022 17:04:11 08/11/19 23 08/14/2022 CBC (INCL UDES DIFF/ PLT) MCHC 33.3 g/dL 32.0-3 6.0 normal Not Available [address], [address], 08/14/2022 17:04:11 08/11/19 23 08/14/2022 CBC (INCL UDES DIFF/ PLT) RDW 13.9 % 11.0-1 5.0 normal Not Available [address] [place], [address], 08/14/2022 17:04:11 08/11/19 23 08/14/2022 CBC (INCL UDES DIFF/ PLT) platelet count 272 thous and/u L 140-40 0 normal Not Available [address], [address], 08/14/2022 17:04:11 08/11/19 23 08/14/2022 CBC (INCL UDES DIFF/ PLT) MPV 10.5 fL 7.5-12 .5 normal Not Available [address], [address], 08/14/2022 17:04:11 08/11/19 23 08/14/2022 CBC (INCL UDES DIFF/ PLT) absolute neutrophils 2796 cells /uL 1500-7 800 normal Not Available [address], [address], 08/14/2022 17:04:11 08/11/19 23 08/14/2022 CBC (INCL UDES DIFF/ PLT) absolute lymphocytes 2372 cells /uL 850-39 00 normal Not Available [address], [address], 08/14/2022 17:04:11 08/11/19 23 08/14/2022 CBC (INCL UDES DIFF/ PLT) absolute monocytes 470 cells /uL 200-95 0 normal Not Available [address], [address], 08/14/2022 17:04:11 08/11/19 23 08/14/2022 CBC (INCL UDES DIFF/ PLT) absolute eosinophils 133 cells /uL 15-500 normal Not Available [address], [address], 08/14/2022 17:04:11 08/11/19 23 08/14/2022 CBC (INCL UDES DIFF/ PLT) absolute basophils 29 cells /uL 0-200 normal Not Available [address], [address], 08/14/2022 17:04:11 08/11/19 23 08/14/2022 CBC (INCL UDES DIFF/ PLT) neutrophils 48.2 % normal Not Available [facility] [address], [address], 08/14/2022 17:04:11 08/11/19 23 08/14/2022 CBC (INCL UDES DIFF/ PLT) lymphocytes 40.9 % normal Not Available [facility] [address], [address], 08/14/2022 17:04:11 08/11/19 23 08/14/2022 CBC (INCL UDES DIFF/ PLT) monocytes 8.1 % normal Not Available [address], [address], 08/14/2022 17:04:11 08/11/19 23 08/14/2022 CBC (INCL UDES DIFF/ PLT) eosinophils 2.3 % normal Not Available [address], [address], 08/14/2022 17:04:11 08/11/19 23 08/14/2022 CBC (INCL UDES DIFF/ PLT) basophils 0.5 % normal Not Available [address], [address], 08/14/2022 17:04:11 08/11/19 23 08/14/2022 HEMOG LOBIN A1C hemoglobin A1C 5.4 %_of_ total _HGB <5.7 normal For the purpo se of kan rowley for the prese nce of diabe grace: <5.7% Consi stent with the absen ce of diabe grace 5.7-6 .4% Consi stent with incre ased risk for diabe grace (pred iabet es) > or =6.5% Consi stent with diabe grace This assay resul t is consi stent with a decre ased risk of diabe grace. Curre ntly, no conse nsus exist s regar dimas use of hemog lobin A1c for diagn osis of diabe grace in child jose alejandro. Accor ding to [employer] Diabe grace [employer] n (ADA) guide lines , hemog lobin A1c <7.0% repre sents optim al contr ol in non-p regna nt diabe tic patie nts. Diffe rent metri cs may apply to speci fic patie nt popul ation s. [facility] in Diabe grace(A DA). Not Available [facility] [address], [place], [address], 08/14/2022 17:04:12 08/11/19 23 08/14/2022 TESTO STERO NE, FREE (DIAL YSIS) AND TOTAL ,MS testosterone , total, MS 399 NG/dL 250-11 00 Men with clini lauri signi fican t hypog onada l sympt oms and testo stero ne value s repea tedly in the range of the 200-3 00 ng/dL or less, may benef it from testo stero ne treat ment after adequ ate risk and benef its couns eling . For addit ional infor carl solis, pleas e refer to https ://ed ucati on.qu ivania [employer]. com/f aq/FA Q165 (This link is being provi ded for infor carl nal/e ducat ional purpo ses only. ) (Note ) This test was devel oped and its sara tical perfo rmanc e christal cteri stics have been deter mined by [facility]. It has not been clear ed or appro mira by the FDA. This assay has been valid ated pursu ant to the CLIA regul ation s and is used for clini mesfin purpo ses. Not Available [facility] [address], [place], [address], 08/14/2022 17:04:13 08/11/19 23 08/14/2022 TESTO STERO NE, FREE (DIAL YSIS) AND TOTAL ,MS testosterone , free 119.2 pg/mL 35.0-1 55.0 (Note ) This test was devel oped and its sara tical perfo rmanc e christal cteri stics have been deter mined by [facility]. It has not been clear ed or appro mira by the FDA. This assay has been valid ated pursu ant to the CLIA regul ation s and is used for clini mesfin purpo ses. [facility] med fusio n [address] [facility] [address] [facility] [place] [address] [phone] Shaun luong MD Not Available [address] [address] [place], [address], 08/14/2022 17:04:13 03/21/20 23 03/24/2023 TESTO STERO NE, FREE, BIOAV AILAB LE AND TOTAL , MS albumin 4.1 g/dL 3.6-5. 1 Not Available [address], [address], 03/24/2023 23:44:31 03/21/20 23 03/24/2023 TESTO STERO NE, FREE, BIOAV AILAB LE AND TOTAL , MS sex hormone binding globulin 18.2 nmol/ L 10-50 Not Available [address], [address], 03/24/2023 23:44:31 03/21/20 23 03/24/2023 TESTO STERO NE, FREE, BIOAV AILAB LE AND TOTAL , MS testosterone , free 55.7 pg/mL 46.0-2 24.0 Not Available [facility] [address] [address] [place], [address], 03/24/2023 23:44:31 03/21/20 23 03/24/2023 TESTO STERO NE, FREE, BIOAV AILAB LE AND TOTAL , MS testosterone ,bioavailabl e 104.9 NG/dL 110.0- 575.0 low Not Available [facility] [address] [place], [address], 03/24/2023 23:44:31 03/21/2003/24/2023 TESTO STERO NE, FREE, BIOAV AILAB LE AND TOTAL , MS testosterone , total, MS 275 NG/dL 250-11 00 Men with clini lauri signi fican t hypog onada l sympt oms and testo stero ne value s repea tedly in the range of the 200-3 00 ng/dL or less, may benef it from testo stero ne treat ment after adequ ate risk and benef its couns eling . For addit ional infor yee beebe e refer to https ://ed ucati on.qu Reddit. com/f aq/FA Q183 (This link is being provi ded for infor carl nal/e ducat ional purpo ses only. ) (Note ) This test was devel oped and its sara tical perfo rmanc e christal cteri stics have been deter mined by [facility]. It has not been clear ed or appro mira by the FDA. This assay has been valid ated pursu ant to the CLIA regul ation s and is used for clini mesfin purpo ses. [facility] med fusio n [address] [facility] [address] [facility] [address] [phone] Yahir alcazar MD Not Available [facility] [address], [place], [address], 03/24/2023 23:44:31 03/21/2003/24/2023 ESTRA DIOL estradiol 27 pg/mL < or = 39 normal Refer ence range estab lishe d on post- puber maria antonia patie nt popul ation . No pre-p ubert al refer ence range estab lishe d using this assay . For any patie nts for whom low Estra diol level s are antic ipate d (e.g. males , pre-p ubert al child jose alejandro and hypog onada l/pos t-men opaus al femal es), the [facility] Estra diol, Ultra sensi tive, LCMSM S assay is recom tigist d (orde r code 44682 ). Yee alberts note: patie nts being treat ed with the drug fulve stran t (Fasl odex( R)) have demon strat ed signi fican t inter feren ce in immun oassa y metho ds for estra diol measu remen t. The cross react ivity could lead to false ly eleva ashanti estra diol test resul ts leadi ng to an inapp ropri ate clini mesfin asses sment of estro gen statu s. [facility] order code [id number] -Estr adiol , Ultra sensi tive LC/MS /MS demon strat es negli gible cross react ivity with fulve stran t. Not Available [facility] [address] , [place], [address], 03/24/2023 23:44:32 06/01/19 23 06/01/2022 US, duple x, scrot um, compl ete No observ ation record ed. [id number] [facility] [address] [place], [address], 07/27/2022 01:26:06 Result Notes None recorded. Problems Name Problem SNOMED Code Status Onset Date Resolution Date Notes Provider Name and Address Organization Details Recorded Time Testosterone level below reference range 825741536 Active 2021 Not Available [facility] 3 01:25:06 Male hypogonadism 65989873 Active 2021 Not Available [facility] 3 01:25:06 Fatigue 66505778 Active 2021 Not Available [facility] 3 01:25:06 Testicular mass 11185477 Active 2021 Not Available [facility] 3 01:25:06 Acute urinary tract infection 005548492 Active 2021 Not Available [facility] 3 01:25:06 Spermatocele 62622122 Active 2022 Not Available [facility] 3 01:25:06 Problem Notes None recorded. Procedures Surgical History Date Name Laterality Status Provider Name and Address Organization Details Recorded Time Gastric bypass for obesity completed Not Available [facility] 07/27/2022 01:24:22 Imaging Results None recorded. Procedure Notes None recorded. Medical Equipment None Reported. Medications Name Sig Start Date Stop Date Status Note LastModified by Organization Details LastModified Time hydroxyzine HCl 50 mg tablet TAKE 1 TABLET BY MOUTH TWICE DAILY NEEDED active Not Available Not Available No t Available sulfamethox azole 800 mg-trimetho prim 160 mg tablet TAKE 1 TABLET BY MOUTH TWICE DAILY FOR 21 DAYS. 06/23 completed Not Available Not Available Not Available tramadol 50 mg tablet active Not Available Not Available No t Available dextroamphe tamine-amph etamine ER 10 mg 24hr capsule,ext end release active Not Available Not Available Not Available clobetasol- emollient 0.05 % topical cream APPLY TO THE AFFECTED AREA TWICE DAILY active Not Available Not Available No t Available nitrofurant oin monohydrate /macrocryst als 100 mg capsule TAKE 1 CAPSULE BY MOUTH EVERY 12 HOURS FOR 7 DAYS 06/23 completed Not Available Not Available Not Available Vyvanse 30 mg capsule TAKE 1 CAPSULE BY MOUTH EVERY MORNING active Not Available Not Available No t Available testosteron e 10 mg/0.5 gram/actuat ion transdermal gel pump Apply 4 pumps every day by transderm al route for 30 days. 02/03 completed Not Available Not Available Not Available testosteron e 20.25 mg/1.25 gram per pump act.(1.62 %) transdermal gel APPLY 3 PUMPS TOPICALLY ONCE DAILY 2022 active Not Available Not Available Not Avai lable Androderm 4 mg/24 hr transdermal 24 hour patch Apply 1 patch every day by transderm al route for 30 days. 06/23 completed Not Available Not Available Not Available Vitals Date Recorded Body mass index (BMI) Body height Oxygen saturation Oxygen saturation in Arterial blood by Pulse oximetry Heart rate Body temperature Body weight Systolic And Diastolic Provider Name and Address Organization Details Last Updated DateTime 3 44.2 kg/m2 180.34 cm 99 % 99 % 84 /min 98.1 [degF] 242041. 78 g 122/87 mm[Hg] Not Available [facility] 3 01:24:51 Date Recorded Body mass index (BMI) Body height Oxygen saturation Oxygen saturation in Arterial blood by Pulse oximetry Heart rate Body temperature Body weight Systolic And Diastolic Provider Name and Address Organization Details Last Updated DateTime 2 55.1 kg/m2 180.34 cm 98 % 98 % 89 /min 98.2 [degF] 912822. 99 g 130/100 mm[Hg] Not Available [facility] 3 01:24:50 Date Recorded Body mass index (BMI) Body height Oxygen saturation Oxygen saturation in Arterial blood by Pulse oximetry Heart rate Body temperature Body weight Systolic And Diastolic Provider Name and Address Organization Details Last Updated DateTime 2 49.9 kg/m2 180.34 cm 97 % 97 % 66 /min 97.6 [degF] 407263. 07 g 110/90 mm[Hg] Not Available [facility] 3 01:24:51 Social History Question Answer Notes LastModified by SAW Instrument ion Details LastModified Time Tobacco Smoking Status Never Smoker Not Available [facility] 07/27/2022 01:24:01 What Is Your Level Of Caffeine Consumption? None [id number] Information not available 07/27/2022 In The 14 Days Before Symptom Onset, Have You Had Close Contact With A Laboratory-confir med COVID-19 While That Case Was Ill? No [id number] Information not available 07/27/2022 In The 14 Days Before Symptom Onset, Have You Had Close Contact With A Person Who Is Under Investigation For COVID-19 While That Person Was Ill? No [id number] Information not available 07/27/2022 What Type Of Diet Are You Following? VEGETARIAN [id number] Information not available 07/27/2022 Are You Following A Low Salt Diet? Yes No Sugar No Fats [id number].[id number] Information not available 07/27/2022 Has Tobacco Cessation Counseling Been Provided? No [id number] Information not available 07/27/2022 Have You Recently Traveled Abroad? No [id number] Information not available 07/27/2022 Do You Have Any Dietary Restrictions? Yes Liquid [id number] Information not available 07/27/2022 Sex: Unknown Functional Status Question Answer Note LastModified by Organizat ion Details LastModified Time Do you use any illicit or recreational drugs? No [id number] Information not available 07/27/2022 Do you or have you ever used any other forms of tobacco or nicotine? No [id number] 26 Information not available 07/27/2022 What is your level of alcohol consumption? None [id number] Information not available 07/27/2022 What is your exercise level? Moderate [id number] Information not available 07/27/2022 Mental Status None recorded. Family History Nothing Reported. Medical History Condition Response Low Testosterone Y Past Encounters Encounter ID Performer Location Encounter Start Date Encounter Closed Date Diagnosis/Indication Diagnosis SNOMED-CT Code Diagnosis ICD10 Code Diagnosis Note [id number] [facility] [address] [place] [address] 01/03/2022 00:00:00 01/03/2022 15:40:45 [id number] [facility] [address] [place] [address] 03/06/2022 00:00:00 03/06/2022 21:45:38 [id number] Dania Gaston MD [facility] [address] [facility] [address] [place] [address] 06/23/2022 00:00:00 06/23/2022 15:14:51 Health Concerns Section Related Observation LastModified by Organization Detai ls LastModified Time None Recorded Concern Status LastModified by Organization Details LastModified Time None Recorded Advance Directives Directive None Recorded Payers Insurance Date Sequence Insurance Name Policy Number Policy Munguia Covered Member ID Munguia Member ID Guarantor Name 03/19/2023 1 [facility] (MEDICAID REPLACEMENT - HMO) [id number] Marino Keys [id number] Marino Keys
--- OUTSIDE RECORDS SUMMARY | 2024-12-15 17:29 | XMS_ITS | Clinical Summary ---
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 Gender Identity Not on file Sexual Orientation Not on file Last Filed Vital Signs Vital Sign Reading Time Taken Comments Blood Pressure 117/71 12/24/2014 11:25 AM CDT Pulse 95 12/24/2014 11:25 AM CDT Temperature 36 C (96.8 F) 12/24/2014 11:25 AM CDT Respiratory Rate - - Oxygen Saturation - - Inhaled Oxygen Concentration - - Weight 130.9 kg (288 lb 9.3 oz) 015 11:25 AM CDT Height 184 cm (6' 0.44) 12/24/2014 11: 25 AM CDT Body Mass Index 38.66 12/24/2014 11:25 AM CDT Plan of Treatment Health Maintenance Due Date Last Done Comments Hepatitis B Vaccines (1 of 3 - 19+ 3-dose series) 07/30/2014 COVID-19 Vaccine ( - 2023-2 5 season) 2024 DTaP,Tdap,and Td Vaccines (2 - Td or Tdap) 12/24/2024 12/24/2014 Influenza Vaccine (#1) 2025 Zoster Vaccines (1 of 2) 07/30/2045 RSV Vaccine 60+ and Patients (1 - 1-dose 75+ series) 07/30/2070 HIV Screening Discontinued 12/24/2014 Meningococcal ACWY Vaccine Aged Out 12/24/2014 N o longer eligible based on patient's age to complete this topic HIB Vaccines Aged Out No longer eligi ble based on patient's age to complete this topic HPV Vaccines Aged Out No longer eligi ble based on patient's age to complete this topic Hepatitis A Vaccines Aged Out No long er eligible based on patient's age to complete this topic IPV Vaccines Aged Out No longer eligi ble based on patient's age to complete this topic Meningococcal B Vaccine Aged Out No l onger eligible based on patient's age to complete this topic Pneumococcal Vaccine: Pediat rics (0 to 5 Years) and At-Risk Patients (6 to 49 Years) Aged Out No longer eligi ble based on patient's age to complete this topic RSV Pediatric <20 Months Aged Out No longer eligible based on patient's age to complete this topic Procedures Procedure Name Priority Date/Time Associated Diagnosis Comments HIV ANTIBODY/ANTIGEN SCREEN WITH REFLEX Routine 12/24/2014 12:30 PM CDT from Last 3 Months or Most Recently Relevant to Health Maintenance Results * HIV Antibody/Antigen Screen with Reflex (12/24/2014 12:30 PM CDT) HIV 1/2 AB SCREEN NON REACTIVE [facility] 12/24/2014 12:3 0 PM CDT Edwin Bonner APRN-FPA LAB BLOOD ORDERABLES Fi nal Result [facility]ALTH [facility] LAB [address] [facility] [address] [address] ([facility]) [place] [address] from Last 3 Months or Most Recently Relevant to Health Maintenance
--- OUTSIDE RECORDS SUMMARY | 2024-12-15 17:29 | XMS_ITS | Clinical Summary ---
Author Organization [employer] [facility] [place] Address [address] [place] [address] Phone Care Team Providers Care Quality Engineer Name Role Phone No, Pcp MD Primary Care Provider Unavailabl e Allergies No known active allergies Medications naproxen (NAPROSYN) 500 mg tablet Take 1 Tab by mouth 2 (two) times daily with meals 15 Tab 12/19/2017 Active Social History Tobacco Use Types Packs/Day Years Used Date Smoking Tobacco: Never Smokeless Tobacco: Never Alcohol Use Standard Drinks/Week Comments No 0 (1 standard drink = 0.6 oz pur e alcohol) Sex and Gender Information Value Date Recorded Sex Assigned at Not on file Legal Sex Male 7:06 PM EDT Gender Identity Male 12/19/2017 8:08 PM EDT Sexual Orientation Not on file Last Filed Vital Signs Vital Sign Reading Time Taken Comments Blood Pressure 131/81 12/19/2017 9:56 PM CDT Pulse 76 12/19/2017 9:56 PM CDT Temperature 36.9 C (98.4 F) 12/19/2017 7:05 PM CDT Respiratory Rate 18 12/19/2017 9:56 PM CDT Oxygen Saturation 99% 12/19/2017 9:56 PM CDT Inhaled Oxygen Concentration - - Weight 157.9 kg (348 lb) 12/19/2017 7:05 PM CDT Height 180.3 cm (5' 11) 12/19/2017 7:05 PM CDT Body Mass Index 48.54 12/19/2017 7:05 PM CDT Plan of Treatment Health Maintenance Due Date Last Done Comments HIV Screening 1995 Well Visit 07/30/1998 Depression Screening 07/30/2013 Hepatitis B Vaccination (1 of 3 - 19+ 3-dose series) 0 07/30/2014 Tdap/Td Vaccination (1 - Tdap) 07/30/2016 HPV Vaccination (1 of 3 - 3-dose SCDM series) 07/31/19 23 COVID-19 Vaccine (1 - 2023- season) 2024 Influenza Vaccination (#1) 2024 [place] [employer] [facility] Care Teams Quality Engineer Relationship Specialty Start Date End Date No, Pcp, MD PCP - General Unknown Physician Specialty 12/19/17
--- OUTSIDE RECORDS SUMMARY | 2024-12-15 17:29 | XMS_ITS | Clinical Summary ---
Author Organization [facility] Address [address] [place] [address] Care Team Providers Care Chrome Worker Name Role Phone Unavailable Primary Care Provider Unavailabl e Source Comments [facility],non-owned Affiliates and Associated Physician Practices is amultiple site organization consisting of ambulatory clinics and hospital sitesin [place], [place], [place] and [place]. This disclosure is being madepursuant to the Care Everywhere program and may not contain all information available regarding this patient. Last updated 18.[facility] [employer] Allergies No known active allergies Social History Tobacco Use Types Packs/Day Years Used Date Smoking Tobacco: Never Assessed Sex and Gender Information Value Date Recorded Sex Assigned at Not on file Legal Sex Male 7:39 PM CDT Gender Identity Not on file Sexual Orientation Not on file Last Filed Vital Signs Vital Sign Reading Time Taken Comments Blood Pressure 146/89 08/19/2022 11:20 PM CDT Pulse 80 08/19/2022 11:20 PM CDT Temperature 36.7 C (98 F) 08/19/2022 11:20 PM CDT Respiratory Rate 16 08/19/2022 11:20 PM CDT Oxygen Saturation 99% 08/19/2022 10:10 PM CDT Inhaled Oxygen Concentration - - Weight - - Height - - Body Mass Index - - Plan of Treatment Health Maintenance Due Date Last Done Comments HIV SCREENING 07/30/2010 HEPATITIS C SCREENING 07/26/2013 DTAP/TDAP/TD VACCINES (1 - Tdap) 07/30/2014 HEPATITIS B VACCINE (1 of 3 - 19+ 3-dose series) 07/30/2014 HPV VACCINE (1 - 3-dose SCDM series) 07/30/2022 COVID-19 VACCINE (1 - 2024-2 5 season) 2024 DEPRESSION SCREENING 05/28/2024 INFLUENZA VACCINE (#1) 2025 ZOSTER VACCINE (1 of 2) 07/30/2045 HIB VACCINE Aged Out No longer eligi ble based on patient's age to complete this topic MENINGOCOCCAL (Group B) VACC INE SHARED DECISION-MAKING Aged Out No longer eligibl e based on patient's age to complete this topic MENINGOCOCCAL GROUPS A/C/Y/W VACCINE Aged Out No longer eligible b ased on patient's age to complete this topic PNEUMOCOCCAL VACCINE Aged Out No long er eligible based on patient's age to complete this topic Insurance [facility] MEDICAID [facility] THIRD ALLIANCE PARTY LIABILITY Democrat Liability [facility] MEDICAID PAYOR GENERIC [address] MEDICAID
--- OUTSIDE RECORDS SUMMARY | 2024-12-15 17:29 | XMS_ITS | Clinical Summary ---
Author Organization [facility] Address [address] [place] [address] Care Team Providers Care Director Of Marketing Google Performance Ads Name Role Phone Unavailable Primary Care Provider Unavailabl e Medications No known medications Active Problems No known active problems Encounters Date Type Department Care Team Description 11/12/2024 External Device Data [facility] Provider, Abstract 10/16/2024 External Device Data [facility]STRACTION Provider, Abstract 10/15/2024 External Device Data [facility] Provider, Abstract from Last 3 Months Social History Tobacco Use Types Packs/Day Years Used Date Smoking Tobacco: Never Sex and Gender Information Value Date Recorded Sex Assigned at Not on file Legal Sex Male 8:50 AM CDT Gender Identity Not on file Sexual Orientation Not on file Last Filed Vital Signs Vital Sign Reading Time Taken Comments Blood Pressure 116/75 01/05/2024 1:47 PM CDT Pulse 86 01/05/2024 1:47 PM CDT Temperature 36.6 C (97.8 F) 01/05/2024 1:47 PM CDT Respiratory Rate 17 01/05/2024 1:47 PM CDT Oxygen Saturation 100% 01/05/2024 1:47 PM CDT Inhaled Oxygen Concentration - - Weight 122.5 kg (270 lb) 01/05/2024 1:47 PM CDT Height 185.4 cm (6' 1) 01/05/2024 1:47 PM CDT Body Mass Index 35.62 01/05/2024 1:47 PM CDT Plan of Treatment Health Maintenance Due Date Last Done Comments HPV VACCINES (1 - Male 3-dose series) 07/30/2010 DTAP/TDAP/TD VACCINES (1 - Tdap) 07/30/2014 HEPATITIS B VACCINES (1 of 3 - 19+ 3-dose series) 09/2014 INFLUENZA VACCINE (#1) 2024 Insurance CHOICE PLUS
[2024-12-15 17:32] VITALS: BP 140/86; PULSE 71; RESP 16; TEMP 36.2; O2SAT 100
--- OUTSIDE RECORDS SUMMARY | 2024-12-15 18:10 | XMS_ITS | Clinical Summary ---
Author Organization [employer] [facility] Address [address] [place] [address] Phone Care Team Providers Care Child Day Care Provider Name Role Phone No, Pcp MD Primary [...] (#1) 2024 Insurance [place] [employer] [facility] Care Teams Child Day Care Provider Relationship Specialty Start Date End Date No, Pcp, MD PCP - General Unknown Physician Specialty 12/19/17
--- OUTSIDE RECORDS SUMMARY | 2024-12-15 18:10 | XMS_ITS | Clinical Summary ---
Author Organization [facility] Address [address] [place] [address] Care Team Providers Care Composition Board Press Operator Name Role Phone Unavailable Primary Care Provider Unavailabl e Source Comments [facility],non-owned Affiliates and Associated Physician Practices is amultiple site organization consisting of ambulatory clinics and hospital sitesin [place], [place], [place] and [place]. This disclosure is being madepursuant to the Care Everywhere program and may not contain all information available regarding this patient. Last updated 18.[facility] [employer] Allergies No known active allergies Social History [...] patient's age to complete this topic Insurance [facility] MEDICAID [facility] THIRD DEMOCRAT LIABILITY Libertarian Liability [facility] MEDICAID PAYOR GENERIC [address] MEDICAID
--- OUTSIDE RECORDS SUMMARY | 2024-12-15 18:10 | XMS_ITS | Clinical Summary ---
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
--- OUTSIDE RECORDS SUMMARY | 2024-12-15 18:10 | XMS_ITS | Continuity of Care Document ---
Author Organization [facility] Address [address] [place] [address] Phone Care Team Providers Care Cotton Weigher Operator Name Role Phone Gustavo BECKETT, ANJELICAT, Giovanni Unavailable Unavailable Procedures Procedure Date Therapeutic Activities Neuromuscular Re-Ed Therapeutic Exercise Therapeutic Activities Neuromuscular Re-Ed Therapeutic Exercise PT Evaluation High Complexity Therapeutic Activities Therapeutic Exercise Neuromuscular Re-Ed Advance Directives Directive Yes / No Effective Date File Name No Information Encounters Encounter Description Practice Location Reason(s) For Visit Diagnoses Date Provider Providers Copied on Encounter [facility], [id number], tel:[phone] [place] No Information 3 Gustavo Davila. . [facility] [address], [place], [place], [id number], tel:[phone] [place] No Information 3 Gustavo Davila. . Referring Provider: [facility]. [facility] [address], [place], [place], [id number], tel:[phone] [place] No Information 3 Gustavo Davila. . Referring Provider: [facility]. [facility] [address], [place], [place], [id number], tel:[phone] [place] No Information 3 Gustavo Davila. . Referring Provider: [facility]. Family History Family Member Type Diagnosis Age At Onset No Information Payers Payer name Insurance type Covered constitution party ID Kimmy navarro(francois Lindsaye Coco MAYORGA [...]
--- OUTSIDE RECORDS SUMMARY | 2024-12-15 18:10 | XMS_ITS | Clinical Summary ---
Author Organization [facility] Address [address] [place] [address] Care Team Providers Care Oracle Business Intelligence Developer Name Role Phone Unavailable Primary Care Provider [...]
--- OUTSIDE RECORDS SUMMARY | 2024-12-15 18:10 | XMS_ITS | Clinical Summary ---
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
--- NOTE | 2024-12-15 18:14 | ED.GENADULT ---
HPI - General Adult General Chief complaint: Urogenital-Male Stated complaint: left testicle pain Time Seen by Provider: 12/15/24 17:52 History of Present Illness HPI narrative: 29-year-old male presents to the emergency department for evaluation for right-sided scrotal pain. Patient reports the pain has been bothering him over the last few days he describes the pain as intermittent and achy. Patient states it will bother him for an hour or 2 at a time. Patient denies any significant current scrotal pain. Patient reports he went through phase were he was masturbating more frequently suspected that this was part of the testicular pain. Patient also does have a prior history testicular cysts. Patient denies any concern for STIs but states he has also had recent testing. Related Data Allergies Allergy/AdvReac Type Severity Reaction Status Date / Time No Known Allergies Allergy Verified 12/15/24 17:29 Review of Systems Review of Systems: All systems reviewed & are unremarkable except as noted in HPI and below PMFSH Surgical History Surgical History (System 05/07/23 @ 12:45 by Krishan Valenzuela) H/O gastric bypass Social History Social History (System 05/07/23 @ 12:45 by Krishan Valenzuela) Smoking status: Never smoker Alcohol intake: never Substance use: never Exam Narrative: APPEARANCE: Well appearing, no pain, no distress, well-nourished. HEAD: normocephalic, atraumatic. EYES: PERRLA/EOMI, conjunctivae clear. NOSE: Normal no drainage EARS:TMS clear with good light reflex. THROAT: Pharynx clear, no exudate. NECK: Supple. No adenopathy, no masses. RESPIRATORY: Airway patent, respirations nonlabored. Clear to auscultation bilaterally, no rales, rhonchi, wheezing. CARDIOVASCULAR: Regular rate and rhythm without murmurs rubs or gallops. ABDOMINAL: Soft, nontender, nondistended, normal bowel sounds MUSCULOSKELETAL: Moves all extremities. Strength/ROM intact, No edema, No calf tenderness. NEURO: Alert. Cranial nerves II through XII intact. Grossly intact SKIN: Warm, dry. Normal Color Genital exam: No scrotal edema, cellulitis or testicular swelling or tenderness Course Vital Signs Vital signs: Vital Signs Temperature 97.1 F L 12/15/24 17:32 Pulse Rate 71 12/15/24 17:32 Respiratory Rate 16 12/15/24 17:32 Blood Pressure 140/86 12/15/24 17:32 Pulse Oximetry 100 12/15/24 17:32 Temperature 97.1 F L 12/15/24 17:32 Pulse Rate 6 L 12/15/24 19:22 Respiratory Rate 17 12/15/24 19:22 Blood Pressure 134/88 12/15/24 19:22 Pulse Oximetry 100 12/15/24 19:22 Medical Decision Making MDM Narrative Medical decision making narrative: 29-year-old male presents to the emergency department for evaluation for testicular pain. Patient was afebrile and has no evidence of a urinary tract infection. Patient reports negative STI testing recently as outpatient. Ultrasound was negative for torsion and epididymitis. Patient was updated results of his workup and encouraged close follow-up with his primary care physician. All questions and concerns were addressed. Differential Diagnosis Differential Diagnosis: Orchitis, epididymitis, varicocele, hydrocele Vital Signs Vital Signs: Vital Signs Temperature 97.1 F L 12/15/24 17:32 Pulse Rate 71 12/15/24 17:32 Respiratory Rate 16 12/15/24 17:32 Blood Pressure 140/86 12/15/24 17:32 Pulse Oximetry 100 12/15/24 17:32 Temperature 97.1 F L 12/15/24 17:32 Pulse Rate 6 L 12/15/24 19:22 Respiratory Rate 17 12/15/24 19:22 Blood Pressure 134/88 12/15/24 19:22 Pulse Oximetry 100 12/15/24 19:22 Lab Data Lab results reviewed: Yes I reviewed the patient's lab results. Labs: Lab Results 12/15/24 Range/Units 17:57 Urine Color Yellow (Yellow) Urine Appearance Clear (Clear) Urine pH 5.5 (5.0-9.0) Ur Specific [place] 1.027 (1.001-1.035) Urine Protein Negative (Negative) mg/dL Urine Glucose (UA) Negative (Negative) mg/dL Urine Ketones Trace H (Negative) mg/dL Ur Blood (Man) Negative (Negative) Urine Nitrate Negative (Negative) Urine Bilirubin Negative (Negative) Urine Urobilinogen 0.2 (<2.0) mg/dL Leukocyte Esterase Rfl Negative (Negative) NIVIA/UL Imaging Data Radiologist's impression: Impressions Scrotum Ultrasound 12/15/24 18:58 IMPRESSION: Unremarkable ultrasound findings. Discharge Plan Discharge Clinical Impression: Pain in right testicle Patient Disposition: Home Condition: Stable Instructions: Antibiotic Form, Testicle Pain (ED) Additional Instructions: Tylenol and ibuprofen for pain control. Have close follow-up with your primary care physician. Patient Language: Latvian Prescriptions: No Action omeprazole magnesium [Prilosec OTC] 20 mg tablet,delayed release (DR/EC) 20 mg PO DAILY Qty: 14 0RF Follow-up/Referrals: PHYSICIAN NOT ON STAFF,NONSTAFF [Primary Care Provider] -
[2024-12-15 18:18] LABS: Add Urine Microscopic? NO; Appearance Urine Clear (Clear); Glucose Urine UA Negative (Negative); Leukocyte Esterase Ur Negative LEU/UL (Negative); Nitrate Urine Negative (Negative); Specific Grav Ur 1.027 (1.001-1.035)
[2024-12-15 19:22] VITALS: BP 134/88; PULSE 6; RESP 17; O2SAT 100
== END 2024-12-15 19:23 | disposition home or self-care (01) ==
PROVIDERS: Emergency Provider Emergency Medicine
DX: N50.811 Right testicular pain (principal)
CPT/HCPCS: 76870; 81003; 93976; 99284